=== PATIENT | female | born 1955 ===

== ENCOUNTER 2018-09-19 03:08 | Emergency (ER) | payer MEDICAID, MEDICARE ==
[2018-09-19 03:39] VITALS: BMI 31.4
[2018-09-19] MEDS ORDERED: Oxycodone/Acetaminophen 5/325 mg Tab PO STA (03:40)
--- NOTE | 2018-09-19 03:40 | ED PDOC ---
Arrival/HPI - General Time Seen by Provider: 09/19/18 03:32 Historian: Patient - History of Present Illness Narrative History of Present Illness (Text): 09/19/18 03:40 63 year old female, whose past medical history includes gout, diverticulitis, hypercholesterolemia and hypertension, presents to the emergency department complaining of right foot discomfort for the past couple days. Patient states she believes it's gout because she had similar symptoms in the past. Patient take allopurinol but not Colchicine as she claims to have bad reaction when taking. Patient denies any hx. of trauma,fever, chills, chest pain, shortness of breath, nausea, vomiting, diarrhea, urinary symptoms, back pain, neck pain, headache, dizziness, or any other complaints. Time/Duration: Other (couple days) Symptom Onset: Gradual Symptom Course: Unchanged Activities at Onset: Light Context: Home Past Medical History - Provider Review Nursing Documentation Reviewed: Yes - Cardiac Hx Hypertension: Yes - Pulmonary Hx Respiratory Disorders: No - Neurological Hx Neurological Disorder: No - HEENT Hx Cataracts: Yes (B/L surgically corrected) - Renal Hx Kidney Stones: Yes - Endocrine/Metabolic Hx Endocrine Disorders: No - Hematological/Oncological Hx Blood Disorders: No - Integumentary Hx Dermatological Disorder: No - Musculoskeletal/Rheumatological Hx Fractures: Yes - Gastrointestinal Hx Diverticulitis: Yes - Genitourinary/Gynecological Hx Genitourinary Disorders: No - Psychiatric Hx Substance Use: No - Surgical History Hx Appendectomy: Yes - Anesthesia Hx Anesthesia: Yes Hx Anesthesia Reactions: No - Suicidal Assessment Feels Threatened In Home Enviroment: No Family/Social History - Physician Review Nursing Documentation Reviewed: Yes Family/Social History: No Known Family HX Smoking Status: Former Smoker Hx Alcohol Use: No Hx Substance Use: No Allergies/Home Meds Allergies/Adverse Reactions: Allergies Penicillins Allergy (Verified 09/19/18 03:39) RASH Home Medications: Home Meds Medication Instructions Recorded Confirmed RX: Allopurinol [Zyloprim] 100 mg PO DAILY 07/17/17 12/14/17 RX: Atenolol 50 mg PO DAILY 07/17/17 12/14/17 RX: Atorvastatin [Lipitor] 20 mg PO DAILY 07/17/17 12/14/17 RX: Omeprazole 20 mg PO DAILY 07/17/17 12/14/17 RX: Chlorthalidone [Hygroton] 25 mg PO DAILY 12/14/17 12/14/17 Review of Systems - Physician Review All systems were reviewed & negative as marked: Yes - Review of Systems Constitutional: absent: Fevers, Other (Chills) Respiratory: absent: SOB Cardiovascular: absent: Chest Pain Gastrointestinal: absent: Diarrhea, Nausea, Vomiting Genitourinary Female: absent: Dysuria, Frequency, Hematuria Musculoskeletal: Other (right foot pain (gout)). absent: Back Pain, Neck Pain Neurological: absent: Headache, Dizziness Physical Exam Vital Signs Reviewed: Yes Temperature: Afebrile Blood Pressure: Normal Pulse: Regular Respiratory Rate: Normal Appearance: Positive for: Well-Appearing, Non-Toxic, Comfortable Pain Distress: None Mental Status: Positive for: Alert and Oriented X 3 - Systems Exam Head: Present: Atraumatic, Normocephalic Pupils: Present: PERRL Extroacular Muscles: Present: EOMI Conjunctiva: Present: Normal Mouth: Present: Moist Mucous Membranes Respiratory/Chest: Present: Clear to Auscultation, Good Air Exchange. No: Respiratory Distress, Accessory Muscle Use Cardiovascular: Present: Regular Rate and Rhythm, Normal S1, S2. No: Murmurs Lower Extremity: Present: Swelling (minimal swelling to the proximal right great toe), Erythema (area of erytehma). No: Edema Neurological: Present: GCS=15, CN II-XII Intact, Speech Normal Skin: Present: Warm, Dry, Normal Color. No: Rashes Psychiatric: Present: Alert, Oriented x 3, Normal Insight, Normal Concentration Medical Decision Making ED Course and Treatment: 09/19/18 03:40 Impression: 63 year old female presents complaining of right foot pain secondary to gout for the past couple of days. Plan: -- Percocet, Toradol, Prednisone -- Reassess and disposition Prior Visits: Notes and results from previous visits were reviewed. Progress Notes: 09/19/18 05:17 On re-evaluation, patient feels better and is in no acute distress. I have discussed the results and plan with the patient, who expresses understanding. Patient in agreement with plan to be discharged home. Patient is stable for discharge. Patient was instructed to follow up with physician or return if symptoms worsen or new concerning symptoms arise. - Scribe Statement The provider has reviewed the documentation as recorded by the Isaias Matson Provider Scribe Attestation: All medical record entries made by the Markibsandra were at my direction and personally dictated by me. I have reviewed the chart and agree that the record accurately reflects my personal performance of the history, physical exam, medical decision making, and the department course for this patient. I have also personally directed, reviewed, and agree with the discharge instructions and disposition. Disposition/Present on Arrival - Present on Arrival Any Indicators Present on Arrival: No History of DVT/PE: No History of Uncontrolled Diabetes: No Urinary Catheter: No History Surgical Site Infection Following: None - Disposition Have Diagnosis and Disposition been Completed?: Yes Diagnosis: Gout Disposition: HOME/ ROUTINE Disposition Time: 05:12 Patient Plan: Discharge Condition: GOOD Discharge Instructions (ExitCare): Gout (DC) Additional Instructions: Take meds as prescribed/follow up with your doctor this week Prescriptions: oxyCODONE/Acetaminophen [Percocet 5/325 mg Tab] 1 ea PO Q6 PRN #14 tab PRN Reason: Pain, Moderate (4-7) predniSONE [Prednisone] 60 mg PO DAILY #15 tab Forms: [employer] (Uzbek)
[2018-09-19 03:44] VITALS: O2SAT 98
[2018-09-19 05:23] VITALS: BP 133/78; PULSE 82; RESP 17; TEMP 98
== END 2018-09-19 05:23 | disposition home or self-care (01) ==
LOC: ED 03:08
DX: M10.9 Gout, unspecified (principal); I10 Essential (primary) hypertension; E78.00 Pure hypercholesterolemia, unspecified; Z87.891 Personal history of nicotine dependence
CPT/HCPCS: 96372; 99283; J1885

== ENCOUNTER 2019-04-09 11:07 | Observation (INO) | payer MEDICARE ==
[2019-04-09 11:12] VITALS: BMI 33.5
--- NOTE | 2019-04-09 11:22 | ED PDOC ---
Arrival/HPI - General Time Seen by Provider: 04/09/19 11:11 Historian: Patient - History of Present Illness Narrative History of Present Illness (Text): 04/09/19 11:11 63 y/o female, pmh htn/hld/pancreatitis/diverticulitis/gout, penicillin allergy, post menopausal, here with the son c/o lt, sided chest pain started this morning 3am. Lt. sided chest, pressure sensation, non radiating, associated with palpitation, no change in vision, no night sweat, no rash, no numbness or tingling, no diarrhea, no tearing sensation, no other medical or psychological complaints. PMD: [facility] Dr. Yap/Esteban Past Medical History - Provider Review Nursing Documentation Reviewed: Yes - Infectious Disease Hx of Infectious Diseases: None - Cardiac Hx Hypertension: Yes - Pulmonary Hx Respiratory Disorders: No - Neurological Hx Neurological Disorder: No - HEENT Hx Cataracts: Yes (B/L surgically corrected) - Renal Hx Kidney Stones: Yes - Endocrine/Metabolic Hx Endocrine Disorders: No - Hematological/Oncological Hx Blood Disorders: No - Integumentary Hx Dermatological Disorder: No - Musculoskeletal/Rheumatological Hx Fractures: Yes - Gastrointestinal Hx Diverticulitis: Yes - Genitourinary/Gynecological Hx Genitourinary Disorders: No - Psychiatric Hx Substance Use: No - Surgical History Hx Appendectomy: Yes - Anesthesia Hx Anesthesia: Yes Hx Anesthesia Reactions: No - Suicidal Assessment Feels Threatened In Home Enviroment: No Family/Social History - Physician Review Nursing Documentation Reviewed: Yes Family/Social History: Unknown Family HX Smoking Status: Former Smoker Hx Alcohol Use: No Hx Substance Use: No Allergies/Home Meds Allergies/Adverse Reactions: Allergies Penicillins Allergy (Verified 09/19/18 03:39) RASH Home Medications: Home Meds Medication Instructions Recorded Confirmed Allopurinol [Zyloprim] 100 mg PO DAILY 07/17/17 12/14/17 Atenolol 50 mg PO DAILY 07/17/17 12/14/17 Atorvastatin [Lipitor] 20 mg PO DAILY 07/17/17 12/14/17 Omeprazole 20 mg PO DAILY 07/17/17 12/14/17 Chlorthalidone [Hygroton] 25 mg PO DAILY 12/14/17 12/14/17 Review of Systems - Review of Systems Constitutional: absent: Fatigue, Fevers Eyes: absent: Vision Changes ENT: absent: Hearing Changes Respiratory: absent: SOB, Cough Cardiovascular: Chest Pain, Palpitations Gastrointestinal: absent: Abdominal Pain, Diarrhea, Nausea, Vomiting Musculoskeletal: absent: Arthralgias, Back Pain Skin: absent: Rash, Pruritis Neurological: absent: Headache, Dizziness Endocrine: absent: Diaphoresis Hemo/Lymphatic: absent: Adenopathy Psychiatric: absent: Anxiety, Depression, Suicidal Ideation Physical Exam Vital Signs Reviewed: Yes Temperature: Afebrile Blood Pressure: Normal Pulse: Regular Respiratory Rate: Normal Appearance: Positive for: Well-Appearing, Non-Toxic, Comfortable Pain Distress: Moderate Mental Status: Positive for: Alert and Oriented X 3 - Systems Exam Head: Present: Atraumatic, Normocephalic Pupils: Present: PERRL Extroacular Muscles: Present: EOMI Conjunctiva: Present: Normal Mouth: Present: Moist Mucous Membranes Neck: Present: Normal Range of Motion Respiratory/Chest: Present: Clear to Auscultation, Good Air Exchange. No: Respiratory Distress, Accessory Muscle Use, Wheezes, Decreased Breath Sounds, Rales, Retracting, Rhonchi, Tachypneic, Tender to Palpation Cardiovascular: Present: Regular Rate and Rhythm, Normal S1, S2. No: Murmurs Abdomen: Present: Normal Bowel Sounds. No: Tenderness, Distention, Peritoneal Signs, Rebound, Guarding, McBurney's Point Tender, Rovsing's Sign Present Back: Present: Normal Inspection. No: CVA Tenderness, Midline Tenderness, Paraspinal Tenderness Upper Extremity: Present: Normal Inspection, Normal ROM, NORMAL PULSES, Neurovascularly Intact, Capillary Refill < 2s. No: Cyanosis, Edema, Tenderness, Swelling, Deformity Lower Extremity: Present: Normal Inspection, NORMAL PULSES, Normal ROM, Neurovascularly Intact, Capillary Refill < 2 s. No: Edema, Tenderness, Swelling, Deformity Neurological: Present: GCS=15, CN II-XII Intact, Speech Normal, Motor Func Grossly Intact, Normal Cerebellar Funct, Gait Normal, Memory Normal Skin: Present: Warm, Dry, Normal Color. No: Rashes Psychiatric: Present: Alert, Oriented x 3, Normal Insight, Normal Concentration Medical Decision Making ED Course and Treatment: 04/09/19 11:26 -labs -ekg -cxr -IVF/morphine/nitro/aspirin -2 L oxygen -observe and reassess 04/09/19 12:53 -EKG: NSR @ 62 BPM, no ST elevation or depression, no T wave inversion, confirmed the cardiac cath food mixer repairer Dr. Faye Staley. -Chest xray No active disease. -Labs are non-significant -Trop is negative for 1st set -Lipase is negative -UA ordered, no sample yet -I discussed all labs/radiology results with the patient and the son, HEART score is 5, recommend admission to r/o ACS as her chest pain relief with nitro/aspirin/morphine/oxygen -Paging Dr. Grayson as he is covering for [facility]. 04/09/19 13:01 -I spoke to Dr. Dowd, discussed about the case/labs/radiology result, agreed to admit to his service with Dr. Staley on routine consult. 04/09/19 13:31 -UA show no UTI. - RAD Interpretation Radiology Orders: Date of service: 04/09/2019 HISTORY: chest pain COMPARISON: No prior. TECHNIQUE: 1 view obtained. FINDINGS: LUNGS: No active pulmonary disease. PLEURA: No significant pleural effusion identified, no pneumothorax apparent. CARDIOVASCULAR: Aortic atherosclerotic calcifications. Cardiomediastinal silhouette enlarged. OSSEOUS STRUCTURES: Spinal degenerative changes. VISUALIZED UPPER ABDOMEN: Normal. OTHER FINDINGS: None. IMPRESSION: No active disease. Senior Controller: Radiologist - PA / PUMP STATION OPERATOR / Resident Statement MD/DO has reviewed & agrees with the documentation as recorded. Disposition/Present on Arrival - Present on Arrival Any Indicators Present on Arrival: No History of DVT/PE: No History of Uncontrolled Diabetes: No Urinary Catheter: No History of Decub. Ulcer: No History Surgical Site Infection Following: None - Disposition Have Diagnosis and Disposition been Completed?: Yes Diagnosis: Chest pain Disposition: HOSPITALIZED Disposition Time: 11:27 Patient Plan: Admission, Observation, Telemetry Patient Problems: Current Active Problems Problem Status Onset Chest pain Acute Condition: STABLE Discharge Instructions (ExitCare): Chest Pain (ED)
[2019-04-09] MEDS ORDERED: Morphine 4 mg/ml ISec IVP STA (11:23)
[2019-04-09 11:45] LABS: BASO # 0.03 K/mm3 (0.0-2.0); BASO % 0.4 % (0.0-3.0); EOS # 0.2 (0.0-0.7); EOS % 2.6 % (1.5-5.0); HEMOGLOBIN 12.6 g/dL (12.0-16.0); LYMPH # 2.3 (1.2-3.4); LYMPH % 29.1 % (22.0-35.0); MEAN CELL VOLUME 93.4 fl (80.0-105.0); MEAN CORPUSCULAR HGB CONC 33.2 g/dl (31.0-37.0); MEAN PLATELET VOLUME 10.4 fl (7.0-11.0); MONO # 0.8 (0.1-0.6); MONO % 10.2 % (1.0-6.0); RBC 4.07 10^6/uL (3.5-6.1); RED CELL DISTRIBUTION WIDTH 13.2 % (11.5-14.5); WHITE BLOOD COUNT 7.7 10^3/uL (4.5-11.0)
[2019-04-09] MEDS: Sodium Chloride 0.9% 1,000 ML IV SCH ×2 (11:50→21:31)
[2019-04-09 11:54] LABS: ALB/GLOB RATIO 1.6 (1.1-1.8); ALBUMIN 4.1 g/dL (3.0-4.8); ALT/SGPT 20 U/L (7-56); AST/SGOT 23 U/L (14-36); BLOOD UREA NITROGEN 23 mg/dL (7-21); GFR NON-AFRICAN AMERICAN 50; LIPASE 261 U/L (23-300)
[2019-04-09 12:05] LABS: TROPONIN I < 0.01 ng/mL
--- NOTE | 2019-04-09 12:15 | RAD ---
Date of service: 04/09/2019 HISTORY: chest pain COMPARISON: No prior. TECHNIQUE: 1 view obtained. FINDINGS: LUNGS: No active pulmonary disease. PLEURA: No significant pleural effusion identified, no pneumothorax apparent. CARDIOVASCULAR: Aortic atherosclerotic calcifications. Cardiomediastinal silhouette enlarged. OSSEOUS STRUCTURES: Spinal degenerative changes. VISUALIZED UPPER ABDOMEN: Normal. OTHER FINDINGS: None. IMPRESSION: No active disease.
[2019-04-09 13:17] LABS: URINE BILIRUBIN NEGATIVE (NEGATIVE); URINE BLOOD NEGATIVE (NEGATIVE); URINE GLUCOSE (UA) NEGATIVE (NEGATIVE); URINE LEUKOCYTE ESTERASE NEGATIVE Leu/uL (NEGATIVE); URINE PROTEIN NEGATIVE mg/dL (<30 mg/dL); URINE UROBILINOGEN 0.2 E.U./dL (<1 E.U./dL)
[2019-04-09 13:18] LABS: URINE APPEARANCE CLEAR (CLEAR); URINE COLOR YELLOW (YELLOW)
[2019-04-09] MEDS ORDERED: Pneumococcal 23-Valent Vaccine IM ONE (17:45)
[2019-04-09 23:56] VITALS: RESP 20
[2019-04-10 05:13] VITALS: TEMP 97.8; O2SAT 99
[2019-04-10] MEDS ORDERED: Levothyroxine 25 MCG TAB PO SCH (06:00)
[2019-04-10 07:20] LABS: HDL CHOLESTEROL 54 mg/dL (29-60); LIPASE 124 U/L (23-300)
[2019-04-10 07:30] LABS: LDL CHOLESTEROL 47 mg/dL (0-129)
[2019-04-10 07:31] LABS: TROPONIN I < 0.01 ng/mL
--- NOTE | 2019-04-10 07:59 | CP.PCM.HP ---
<RobbMarquez - Last Filed: 04/10/19 08:58> History of Present Illness - History of Present Illness History of Present Illness: Marquez Zamudio D.O. PGY-3, Internal Medicine Resident, H&P CC: Chest pressure for approximately 3 days. 63-year-old female with a past medical history of hypertension, hyperlipidemia, gout, pancreatitis, who presented for complaints of left-sided chest pain that is been going on for approximately 3 days. Patient states that she has had a "sensation "over these last 3 days she has, is just been monitoring it. However, patient woke up in the middle of the night with some pressure in her chest and also palpitations. Patient denies ever having these issues before. Patient denies any recent stressors including life difficulties or otherwise that are attributed to this. Patient also denies having any shortness of breath, dyspnea on exertion, chest pain with physical activity, restriction physical activity, nausea, vomiting, diarrhea, constipation or other complaints. Denies fevers or chills. Denies any recent long travel or periods of mobility. Denies any sick contacts. The pain did not radiate and patient unable to quantify it. PMH: as above PSH: Appendectomy, cholecystectomy, hysterectomy SH: States social smoking for less than 10 years, denies EtOH or illicit drug use FH: High blood pressure and other family members Medications: Reviewed with patient Allergies: Penicillin, breaks out in hives and had a tight throat Present on Admission - Present on Admission Any Indicators Present on Admission: No Review of Systems - Review of Systems All systems: reviewed and no additional remarkable complaints except (as per HPI) Past Patient History - Infectious Disease Hx of Infectious Diseases: None - Past Medical History & Family History Past Medical History?: Yes - Past Social History Smoking Status: Never Smoked - CARDIAC Hx Cardiac Disorders: Yes Hx Hypercholesterolemia: Yes Hx Hypertension: Yes - PULMONARY Hx Respiratory Disorders: No - NEUROLOGICAL Hx Neurological Disorder: Yes Hx Migraine: Yes - HEENT Hx HEENT Problems: Yes Hx Cataracts: Yes (B/L surgically corrected) - RENAL Hx Chronic Kidney Disease: Yes (3) Hx Kidney Stones: Yes (DENIES) - ENDOCRINE/METABOLIC Hx Endocrine Disorders: No - HEMATOLOGICAL/ONCOLOGICAL Hx Blood Disorders: Yes Hx Anemia: Yes - INTEGUMENTARY Hx Dermatological Problems: No - MUSCULOSKELETAL/RHEUMATOLOGICAL Hx Musculoskeletal Disorders: Yes Hx Falls: No Hx Fractures: Yes Hx Gout: Yes Hx Osteoarthritis: Yes - GASTROINTESTINAL Hx Gastrointestinal Disorders: Yes (APPENDECTOMY) Hx Diverticulitis: Yes Hx Gall Bladder Disease: Yes (CHOLECYSTECTOMY) - GENITOURINARY/GYNECOLOGICAL Hx Genitourinary Disorders: Yes (HYSTERECTOMY) - PSYCHIATRIC Hx Psychophysiologic Disorder: No Hx Substance Use: No - SURGICAL HISTORY Hx Surgeries: Yes Hx Appendectomy: Yes Hx Cholecystectomy: Yes - ANESTHESIA Hx Anesthesia: Yes Hx Anesthesia Reactions: No Meds Allergies/Adverse Reactions: Allergies Allergy/AdvReac Type Severity Reaction Status Date / Time Penicillins Allergy RASH Verified 04/09/19 15:04 RED MEAT Allergy VOMITING Uncoded 04/09/19 17:24 Physical Exam - Constitutional Appears: Non-toxic, No Acute Distress - Head Exam Head Exam: ATRAUMATIC, NORMOCEPHALIC - Eye Exam Eye Exam: EOMI. absent: Scleral icterus - ENT Exam ENT Exam: Mucous Membranes Moist, Normal Oropharynx - Respiratory Exam Respiratory Exam: Clear to Auscultation Bilateral. absent: Rales, Rhonchi, Wheezes - Cardiovascular Exam Cardiovascular Exam: RRR, +S1, +S2. absent: Gallop, Rubs, Systolic Murmur - GI/Abdominal Exam GI & Abdominal Exam: Normal Bowel Sounds, Soft. absent: Distended, Tenderness - Extremities Exam Extremities exam: Positive for: normal capillary refill. Negative for: calf tenderness, pedal edema - Back Exam Back exam: absent: muscle spasm, vertebral tenderness - Neurological Exam Neurological exam: Alert, CN II-XII Intact, Oriented x3 - Psychiatric Exam Psychiatric exam: Normal Affect, Normal Mood - Skin Skin Exam: Dry, Intact, Warm Results - Vital Signs Recent Vital Signs: Last Vital Signs Temp 97.8 F 04/10/19 05:13 Pulse 50 L 04/10/19 05:13 Resp 20 04/10/19 05:13 BP 135/74 04/10/19 05:13 Pulse Ox 99 04/10/19 05:13 - Labs Result Diagrams: 04/09/19 11:16 04/09/19 11:16 Labs: Laboratory Results - last 24 hr 04/09/19 04/09/19 04/09/19 11:16 11:16 13:00 WBC 7.7 RBC 4.07 Hgb 12.6 Hct 38.0 MCV 93.4 MCH 31.0 MCHC 33.2 RDW 13.2 Plt Count 228 MPV 10.4 Neut % (Auto) 57.7 Lymph % (Auto) 29.1 [place] % (Auto) 10.2 H Eos % (Auto) 2.6 Baso % (Auto) 0.4 Lymph # (Auto) 2.3 [place] # (Auto) 0.8 H Eos # (Auto) 0.2 Baso # (Auto) 0.03 Absolute Neuts (auto) 4.47 Sodium 141 Potassium 3.6 Chloride 106 Carbon Dioxide 27 Anion Gap 12 BUN 23 H Creatinine 1.1 Est GFR ( Amer) > 60 Est GFR (Non-Af Amer) 50 Random Glucose 114 H Calcium 10.0 Magnesium 1.9 Total Bilirubin 0.6 AST 23 ALT 20 Alkaline Phosphatase 86 Troponin I < 0.01 Total Protein 6.7 Albumin 4.1 Globulin 2.6 Albumin/Globulin Ratio 1.6 Triglycerides Cholesterol LDL Cholesterol Direct HDL Cholesterol Lipase 261 TSH 3rd Generation Urine Color Yellow Urine Appearance Clear Urine pH 7.0 Ur Specific [place] <= 1.005 Urine Protein Negative Urine Glucose (UA) Negative Urine Ketones Negative Urine Blood Negative Urine Nitrate Negative Urine Bilirubin Negative Urine Urobilinogen 0.2 Ur Leukocyte Esterase Negative 04/09/19 04/10/19 04/10/19 19:50 06:30 06:30 WBC RBC Hgb Hct MCV MCH MCHC RDW Plt Count MPV Neut % (Auto) Lymph % (Auto) [place] % (Auto) Eos % (Auto) Baso % (Auto) Lymph # (Auto) [place] # (Auto) Eos # (Auto) Baso # (Auto) Absolute Neuts (auto) Sodium Potassium Chloride Carbon Dioxide Anion Gap BUN Creatinine Est GFR ( Amer) Est GFR (Non-Af Amer) Random Glucose Calcium Magnesium Total Bilirubin AST ALT Alkaline Phosphatase Troponin I < 0.01 < 0.01 Total Protein Albumin Globulin Albumin/Globulin Ratio Triglycerides 231 H Cholesterol 169 LDL Cholesterol Direct 47 HDL Cholesterol 54 Lipase 124 TSH 3rd Generation 4.29 Urine Color Urine Appearance Urine pH Ur Specific [place] Urine Protein Urine Glucose (UA) Urine Ketones Urine Blood Urine Nitrate Urine Bilirubin Urine Urobilinogen Ur Leukocyte Esterase Assessment & Plan - Assessment and Plan (Free Text) Assessment: 63-year-old female with a past medical history of hypertension, hyperlipidemia, gout, pancreatitis, who presented for complaints of left-sided chest pain that is been going on for approximately 3 days. Plan: 1. Chest pain 2. Hypertension 3. Hyperlipidemia 4. Gout 5. Obesity 6. Hypothyroidism First 2 troponins have been negative. EKG without any evidence of ischemia. Will obtain a third troponin. Cardiology will be consulted, will follow up on their recommendations. Will obtain lipid panel, hemoglobin A1c, lipid panel, and therapy with as well as lipase given her previous episode of pancreatitis. For her hypertension we will continue her home atenolol chlorthalidone. For her hyperlipidemia she will be continue atorvastatin. For her CAD she will be continued on her allopurinol. Will advise on lifestyle modifications given her obesity. For her hypothyroidism she will be continued on levothyroxine. We will continue to monitor patient closely. Patient was seen and examined and case discussed at length with attending physician. - Date & Time Date: 04/10/19 Time: 05:35 <Cody Higgins S - Last Filed: 04/10/19 14:23> Results - Vital Signs Recent Vital Signs: Last Vital Signs Temp 97.8 F 04/10/19 05:13 Pulse 60 04/10/19 09:27 Resp 20 04/10/19 05:13 BP 115/62 04/10/19 09:27 Pulse Ox 99 04/10/19 05:13 - Labs Result Diagrams: 04/09/19 11:16 04/09/19 11:16 Labs: Laboratory Results - last 24 hr 04/09/19 04/10/19 04/10/19 19:50 06:30 06:30 Hemoglobin A1c 6.1 Troponin I < 0.01 < 0.01 Triglycerides 231 H Cholesterol 169 LDL Cholesterol Direct 47 HDL Cholesterol 54 Lipase 124 TSH 3rd Generation 04/10/19 06:30 Hemoglobin A1c Troponin I Triglycerides Cholesterol LDL Cholesterol Direct HDL Cholesterol Lipase TSH 3rd Generation 4.29 Assessment & Plan - Assessment and Plan (Free Text) Plan: Pt seen and examined by me. I have reviewed the note of the medical terminologist and I agree with it. I have discussed the assessment and plan with the resident. I have reviewed the medications and the last labs.
[2019-04-10 09:32] VITALS: BP 115/62; PULSE 60
--- NOTE | 2019-04-10 09:52 | CP.PCM.CON ---
History of Present Illness - History of Present Illness History of Present Illness: Awake, alert, no distress Reason for consultation: Cardiac evaluation of chest pain Brief history of present illness: A 63 year old female obese who came in to the ER due to left sided chest pain, non radiating for the past 3 days. She woke up last night with chest pressure and shortness of breath. Son at bedside. Patient speaks sammarinese. Chart reviewed.History of hypertension, hyperlipidemia, gout, pancreatitis,appendectomy, cholecystectomy, hysterectomy. Seen and examined by me and Dr. Staley Review of Systems - Review of Systems All systems: reviewed and no additional remarkable complaints except Review of Systems: as per HPI Past Patient History - Infectious Disease Hx of Infectious Diseases: None - Past Medical History & Family History Past Medical History?: Yes - Past Social History Smoking Status: Never Smoked - CARDIAC Hx Cardiac Disorders: Yes Hx Hypercholesterolemia: Yes Hx Hypertension: Yes - PULMONARY Hx Respiratory Disorders: No - NEUROLOGICAL Hx Neurological Disorder: Yes Hx Migraine: Yes - HEENT Hx HEENT Problems: Yes Hx Cataracts: Yes (B/L surgically corrected) - RENAL Hx Chronic Kidney Disease: Yes (3) Hx Kidney Stones: Yes (DENIES) - ENDOCRINE/METABOLIC Hx Endocrine Disorders: No - HEMATOLOGICAL/ONCOLOGICAL Hx Blood Disorders: Yes Hx Anemia: Yes - INTEGUMENTARY Hx Dermatological Problems: No - MUSCULOSKELETAL/RHEUMATOLOGICAL Hx Musculoskeletal Disorders: Yes Hx Falls: No Hx Fractures: Yes Hx Gout: Yes Hx Osteoarthritis: Yes - GASTROINTESTINAL Hx Gastrointestinal Disorders: Yes (APPENDECTOMY) Hx Diverticulitis: Yes Hx Gall Bladder Disease: Yes (CHOLECYSTECTOMY) - GENITOURINARY/GYNECOLOGICAL Hx Genitourinary Disorders: Yes (HYSTERECTOMY) - PSYCHIATRIC Hx Psychophysiologic Disorder: No Hx Substance Use: No - SURGICAL HISTORY Hx Surgeries: Yes Hx Appendectomy: Yes Hx Cholecystectomy: Yes - ANESTHESIA Hx Anesthesia: Yes Hx Anesthesia Reactions: No Meds Allergies/Adverse Reactions: Allergies Allergy/AdvReac Type Severity Reaction Status Date / Time Penicillins Allergy RASH Verified 04/09/19 15:04 RED MEAT Allergy VOMITING Uncoded 04/09/19 17:24 - Medications Medications: Current Medications Allopurinol (Zyloprim) 100 mg PO DAILY [facility] Last Admin: 04/10/19 09:29 Dose: 100 mg Atenolol (Tenormin) 50 mg PO DAILY [facility] Last Admin: 04/10/19 09:27 Dose: 25 mg Atorvastatin Calcium (Lipitor) 20 mg PO DAILY [facility] Last Admin: 04/10/19 09:30 Dose: 20 mg Chlorthalidone (Hygroton) 25 mg PO DAILY [facility] Last Admin: 04/10/19 09:29 Dose: 25 mg Levothyroxine Sodium (Synthroid) 25 mcg PO 0600 [facility] Last Admin: 04/10/19 05:24 Dose: 25 mcg Physical Exam - Constitutional Appears: Non-toxic, No Acute Distress - Head Exam Head Exam: NORMAL INSPECTION, NORMOCEPHALIC - Eye Exam Eye Exam: Normal appearance Pupil Exam: NORMAL ACCOMODATION - ENT Exam ENT Exam: Mucous Membranes Moist, Normal Exam - Respiratory Exam Respiratory Exam: Decreased Breath Sounds, Clear to Auscultation Bilateral, NORMAL BREATHING PATTERN - Cardiovascular Exam Cardiovascular Exam: Bradycardia, +S1, +S2 - GI/Abdominal Exam GI & Abdominal Exam: Normal Bowel Sounds, Soft - Extremities Exam Extremities exam: Positive for: full ROM, normal capillary refill - Neurological Exam Neurological exam: Alert, Oriented x3 - Psychiatric Exam Psychiatric exam: Normal Affect, Normal Mood - Skin Skin Exam: Dry, Normal Color, Warm Results - Vital Signs Recent Vital Signs: Last Vital Signs Temp 97.8 F 04/10/19 05:13 Pulse 60 04/10/19 09:27 Resp 20 04/10/19 05:13 BP 115/62 04/10/19 09:27 Pulse Ox 99 04/10/19 05:13 - Labs Result Diagrams: 04/09/19 11:16 04/09/19 11:16 Labs: Laboratory Results - last 24 hr 04/09/19 04/09/19 04/09/19 11:16 11:16 13:00 WBC 7.7 RBC 4.07 Hgb 12.6 Hct 38.0 MCV 93.4 MCH 31.0 MCHC 33.2 RDW 13.2 Plt Count 228 MPV 10.4 Neut % (Auto) 57.7 Lymph % (Auto) 29.1 [place] % (Auto) 10.2 H Eos % (Auto) 2.6 Baso % (Auto) 0.4 Lymph # (Auto) 2.3 [place] # (Auto) 0.8 H Eos # (Auto) 0.2 Baso # (Auto) 0.03 Absolute Neuts (auto) 4.47 Sodium 141 Potassium 3.6 Chloride 106 Carbon Dioxide 27 Anion Gap 12 BUN 23 H Creatinine 1.1 Est GFR ( Amer) > 60 Est GFR (Non-Af Amer) 50 Random Glucose 114 H Calcium 10.0 Magnesium 1.9 Total Bilirubin 0.6 AST 23 ALT 20 Alkaline Phosphatase 86 Troponin I < 0.01 Total Protein 6.7 Albumin 4.1 Globulin 2.6 Albumin/Globulin Ratio 1.6 Triglycerides Cholesterol LDL Cholesterol Direct HDL Cholesterol Lipase 261 TSH 3rd Generation Urine Color Yellow Urine Appearance Clear Urine pH 7.0 Ur Specific [place] <= 1.005 Urine Protein Negative Urine Glucose (UA) Negative Urine Ketones Negative Urine Blood Negative Urine Nitrate Negative Urine Bilirubin Negative Urine Urobilinogen 0.2 Ur Leukocyte Esterase Negative 04/09/19 04/10/19 04/10/19 19:50 06:30 06:30 WBC RBC Hgb Hct MCV MCH MCHC RDW Plt Count MPV Neut % (Auto) Lymph % (Auto) [place] % (Auto) Eos % (Auto) Baso % (Auto) Lymph # (Auto) [place] # (Auto) Eos # (Auto) Baso # (Auto) Absolute Neuts (auto) Sodium Potassium Chloride Carbon Dioxide Anion Gap BUN Creatinine Est GFR ( Amer) Est GFR (Non-Af Amer) Random Glucose Calcium Magnesium Total Bilirubin AST ALT Alkaline Phosphatase Troponin I < 0.01 < 0.01 Total Protein Albumin Globulin Albumin/Globulin Ratio Triglycerides 231 H Cholesterol 169 LDL Cholesterol Direct 47 HDL Cholesterol 54 Lipase 124 TSH 3rd Generation 4.29 Urine Color Urine Appearance Urine pH Ur Specific [place] Urine Protein Urine Glucose (UA) Urine Ketones Urine Blood Urine Nitrate Urine Bilirubin Urine Urobilinogen Ur Leukocyte Esterase Assessment & Plan - Assessment and Plan (Free Text) Assessment: A 63 year old female obese who came in to the ER due to left sided chest pain, non radiating for the past 3 days. She woke up last night with chest pressure and shortness of breath. Son at bedside. Patient speaks sammarinese. Chart reviewed. History of hypertension, hyperlipidemia,diverticulitis, gout, pancreatitis,appendectomy, cholecystectomy, hysterectomy and former smoker. Troponin x 3 normal. EKG showed normal sinus rhythm, no ST elevations, Chest X ray unremarkable.No cardiac work up done at [facility]. So far no evidence of myocardial infarction. Rule out acute coronary syndrome. Will schedule out patient echocardiogram and stress test for risk stratification. Cardiac status stable. May discharge patient from cardiac standpoint. Follow up in office. Will discontinue telemetry. Plan: No distress, denies chest pain Heart rate and blood pressure stable Cardiac status stable Discontinue telemetry Out patient stress test Out patient echocardiogram On Allupurinol 100 mg daily,Tenormin 50 mg daily, Lipitor 20 mg daily Synthroid 25 mcg daily Continue current medications Lifestyle modification Weight reduction Follow up in office 2-3 weeks Plan and treatment discussed with Dr. Staley Thank you Dr. Higgins for the opportunity of taking care Sissy Davila - Date & Time Date: 04/10/19 Time: 06:15
--- NOTE | 2019-04-10 10:50 | CARD ---
APPROVED REPORT Date of service: 04/09/2019 EKG Measurement Heart [id number] <Conclusion> Normal sinus rhythm Possible Inferior infarct, age undetermined Abnormal ECG
--- NOTE | 2019-04-11 00:33 | HP ---
DATE OF EXAM: 04/10/2019 HISTORY OF PRESENT ILLNESS: The patient was seen and examined. I do agree with a note of the medical detailist. I was involved in the plan of care. The patient was seen and examined. I agree with a management. The patient came into the hospital with chest pain. She states that she has been having this sensation for the last 3 days. She was concerned as the chest pain woke her up last night, so she came in for further evaluation. She has no complaints of any headaches or dizziness. No nausea. No vomiting. She has a history of hypertension and dyslipidemia. She is obese with BMI of 36. She has history of gout. The patient was seen by Dr. Staley. She had cardiac enzymes done, they were negative x3. Her LDL was 47. Her TSH is 4.29. The patient is going to be discharges. She was cleared by Dr. Staley. She is going to have an outpatient stress test done. She is going to continue with her Lipitor, allopurinol and Tenormin. She is also on Synthroid for her hypothyroidism. The patient is going to be discharged home to followup with her primary care doctor. CONDITION: Stable. ACTIVITIES: Increase as tolerated. Cdoy Higgins MD
== END 2019-04-10 13:57 | disposition home or self-care (01) ==
LOC: ED 11:07 → ERH 13:03 → 2RNO 15:41
PROVIDERS: ADMIT Internal Medicine Nephrology; ATTEND Internal Medicine Nephrology
DX: R07.89 Other chest pain (principal); I10 Essential (primary) hypertension; E03.9 Hypothyroidism, unspecified; M10.9 Gout, unspecified; E78.5 Hyperlipidemia, unspecified; E66.9 Obesity, unspecified; Z68.36 Body mass index [BMI] 36.0-36.9, adult; Z87.891 Personal history of nicotine dependence; Z88.0 Allergy status to penicillin
CPT/HCPCS: 36415; 71045; 80053; 80061; 81003; 83036; 83690; 83735; 84443; 84484; 85025; 93005; 96374; 99285; G0378; J2270; J7030